=== PATIENT | male | born 1990 | race American Indian/Alaskan Native ===

== ENCOUNTER 2016-06-16 15:36 | Emergency (ER) | payer SELFPAY ==
[2016-06-16 18:06] LABS: Bilirubin,Urine NEG (Negative); Blood,Urine NEG (Negative); Ketones,Urine NEG (Negative); Leukocyte Esterase,Urine TR (Negative); Mucus,Urine FEW /HPF; Nitrite,Urine NEG (Negative); Protein,Urine <15 mg/dL mg/dL (Negative); Urobilinogen,Urine < 2.0 mg/dL (<2.0)
--- NOTE | 2016-06-16 21:45 | Ultrasound Report ---
FINAL REPORT EXAM: US TESTICULAR DOPPLER COMP HISTORY: scrot pain TECHNIQUE: Ultrasound scrotum with pulsed and color Doppler evaluation PRIORS: None. FINDINGS: Right testicle is 3.4 x 3.4 x 3.2 centimeters. There is normal echogenicity. Normal flow seen on pulsed and color Doppler evaluation Left testicle is 3.7 x 2.6 x 3.2 centimeters. There is normal vascular flow seen on pulsed and color Doppler evaluation. Normal echogenicity There are small bilateral hydroceles present The epididymal heads appear prominent in size. No focal abnormal mass identified. IMPRESSION: Bilateral small hydroceles Prominent size of the epididymis and epididymal heads bilaterally consideration given to epididymitis
[2016-06-16] MEDS ORDERED: XYLOCAINE 1% MPF 5 mL INFILTRATI ONE (22:33)
[2016-06-16] MEDS ORDERED: ROCEPHIN IM ONE (22:33)
[2016-06-16] MEDS ORDERED: MOTRIN PO ONE (22:34)
--- NOTE | 2016-06-16 22:37 | Emergency Department Report ---
ED Male HPI - General Chief complaint: Urogenital-Male Stated complaint: INGUINAL HERNIA / SEVERE PAIN Time Seen by Provider: 06/16/16 22:07 Source: patient Mode of arrival: Ambulatory Limitations: No Limitations - History of Present Illness MD Complaint: testicle pain, testicle swelling, dysuria Onset/Timin -: Gradual, week(s) Location: left testicle Severity: moderate Severity scale (0 -10): 6 Quality: aching Consistency: constant Improves with: none Worsens with: urination, movement denies other symptoms - Related Data Previous Rx's Medication Instructions Recorded Last Taken Type Ibuprofen [Motrin] 600 mg PO Q8H PRN #60 tablet 04/21/15 Unknown Rx traMADol [Ultram] 50 mg PO Q6HR PRN #14 tablet 04/21/15 Unknown Rx Diazepam Tab [Valium] 5 mg PO TID PRN #12 tablet 08/22/15 Unknown Rx predniSONE [Deltasone] 20 mg PO BID #10 tablet 08/22/15 Unknown Rx Doxycycline [Vibramycin CAP] 100 mg PO Q12HR #20 capsule 06/16/16 Unknown Rx Ibuprofen [Motrin] 600 mg PO Q8H PRN #30 tablet 06/16/16 Unknown Rx Allergies Allergy/AdvReac Type Severity Reaction Status Date / Time No Known Allergies Allergy Verified 04/21/15 04:10 ED Review of Systems ROS: Stated complaint: INGUINAL HERNIA / SEVERE PAIN Other details as noted in HPI Constitutional: denies: chills, fever Eyes: denies: eye pain, eye discharge, vision change ENT: denies: ear pain, throat pain Respiratory: denies: cough, shortness of breath, wheezing Cardiovascular: denies: chest pain, palpitations Endocrine: no symptoms reported Gastrointestinal: denies: abdominal pain, nausea, diarrhea Genitourinary: dysuria, testicular pain (patient complaining of mild testicular pain and swelling 1 week Niaspan now discharged). denies: urgency Musculoskeletal: denies: back pain, joint swelling, arthralgia Skin: denies: rash, lesions Neurological: denies: headache, weakness, paresthesias Psychiatric: denies: anxiety, depression Hematological/Lymphatic: denies: easy bleeding, easy bruising ED Past Medical Hx - Social History Smoking Status: Never Smoker Substance Use Type: None - Medications Home Medications: Home Medications Medication Instructions Recorded Confirmed Last Taken Type Ibuprofen [Motrin] 600 mg PO Q8H PRN #60 tablet 04/21/15 Unknown Rx traMADol [Ultram] 50 mg PO Q6HR PRN #14 tablet 04/21/15 Unknown Rx Diazepam Tab [Valium] 5 mg PO TID PRN #12 tablet 08/22/15 Unknown Rx predniSONE [Deltasone] 20 mg PO BID #10 tablet 08/22/15 Unknown Rx Doxycycline [Vibramycin CAP] 100 mg PO Q12HR #20 capsule 06/16/16 Unknown Rx Ibuprofen [Motrin] 600 mg PO Q8H PRN #30 tablet 06/16/16 Unknown Rx ED Physical Exam - General Limitations: No Limitations General appearance: alert, in no apparent distress - Head Head exam: Present: atraumatic, normocephalic - Eye Eye exam: Present: normal appearance - ENT ENT exam: Present: mucous membranes moist - Neck Neck exam: Present: normal inspection - Respiratory Respiratory exam: Present: normal lung sounds bilaterally. Absent: respiratory distress - Cardiovascular Cardiovascular Exam: Present: regular rate, normal rhythm. Absent: systolic murmur, diastolic murmur, rubs, gallop - GI/Abdominal GI/Abdominal exam: Present: soft, normal bowel sounds - Rectal Rectal exam: Present: deferred - Expanded Exam Expanded Male exam: Present: other exam: Testicular Tenderness: Left, Right (mild testicular tenderness upper aspect of bilateral testicles. No visible erythema no crepitus on exam on palpation), Testicular Swelling: Left, Right (only mild testicular swelling as per patient. No perineal abscess or crepitus on clinical exam on palpation or visualization of the perineum/base of scrotum), Epididymal Tenderness: Left, Right, Cremasteric Reflex Present: Left, Right image: 1 - Mild upper testicular tenderness bilaterally. No hernias palpable in inguinal rings bilaterally during clinical exam on palpation - Extremities Exam Extremities exam: Present: normal inspection - Back Exam Back exam: Present: normal inspection - Neurological Exam Neurological exam: Present: alert, oriented X3, CN II-XII intact, normal gait - Psychiatric Psychiatric exam: Present: normal affect, normal mood - Skin Skin exam: Present: warm, dry, intact, normal color. Absent: rash ED Course Vital Signs 06/16/16 15:55 Temperature 98.1 F Pulse Rate 57 L Respiratory 20 Rate Blood Pressure 140/89 O2 Sat by Pulse 99 Oximetry ED Medical Decision Making - Medical Decision Making A/P: Acute Epididymitis 1-no clinical signs of geri's gangrene, no crepitus on testicular exam, no fever, no viable fluctuance or abscess, no testicular erythema 2-will treat empirically with ceftriaxone IM and doxycycline 3-urine culture sent, GC culture sent 4-will give patient follow up with primary care and urology 5- I advised patient to return to the ED for any worsening testicular swelling testicular pain fever chills nausea vomiting or abdominal pain Critical care attestation.: If time is entered above; I have spent that time in minutes in the direct care of this critically ill patient, excluding procedure time. ED Disposition Clinical Impression: Acute epididymitis Disposition: DISCHARGED TO HOME OR SELFCARE Is pt being admited?: No Does the pt Need Aspirin: No Condition: Stable Instructions: Epididymitis (ED) Prescriptions: Ibuprofen [Motrin] 600 mg PO Q8H PRN #30 tablet PRN Reason: Pain Doxycycline [Vibramycin CAP] 100 mg PO Q12HR #20 capsule Referrals: PRIMARY CAREMD [Primary Care Provider] - 3-5 Days [facility] [Provider Group] - 3-5 Days AMANDA CLEMENTS MD [Staff Physician] - 3-5 Days [facility] [Outside] - 3-5 Days Forms: STI Treatment and Prevention Time of Disposition: 22:46
[2016-06-16 23:39] VITALS: BP 132/78
== END 2016-06-16 23:40 | disposition home or self-care (01) ==
LOC: ED 15:36
DX: N45.1 Epididymitis (principal)
CPT/HCPCS: 81001; 93975; 96372; 99283; J0696

== ENCOUNTER 2016-10-31 22:49 | Emergency (ER) | payer SELFPAY ==
[2016-10-31] MEDS ORDERED: TYLENOL PO ONE (23:16)
[2016-10-31] MEDS ORDERED: TYLENOL ONE (23:17)
[2016-11-01 00:03] LABS: Anion Gap 17 mmol/L; Blood Urea Nitrogen 11 mg/dL (9-20); Calcium 8.9 mg/dL (8.4-10.2); Carbon Dioxide 27 mmol/L (22-30); Chloride 98.8 mmol/L (98-107); Glucose 99 mg/dL (75-100); Potassium 4.1 mmol/L (3.6-5.0); Sodium 139 mmol/L (137-145)
[2016-11-01 00:13] LABS: Basophils % (Auto) 0.4 % (0.0-1.8); Eosinophils % (Auto) 0.2 % (0.0-4.3); Hemoglobin 14.1 gm/dl (11.8-15.2); Mean Corpuscular HGB Conc 34 % (32-34); Mean Corpuscular Hemoglobin 30 pg (28-32); Mean Corpuscular Volume 90 fl (84-94); Platelet Count 140 K/mm3 (140-440); Red Blood Count 4.68 M/mm3 (3.65-5.03); Red Cell Distribution Width 13.9 % (13.2-15.2); White Blood Count 9.5 K/mm3 (4.5-11.0)
[2016-11-01] MEDS ORDERED: NACL 0.9% 1000 ML 1,000 ML IV ONE (00:28)
[2016-11-01] MEDS ORDERED: MORPHINE IV ONE (00:29)
--- NOTE | 2016-11-01 00:29 | Emergency Department Report ---
ED ENT HPI - General Chief complaint: Fever Stated complaint: STEEL/HEAD INJURY Source: patient Mode of arrival: Ambulatory Limitations: No Limitations - History of Present Illness Initial comments: 26M PMH none p/w complaint of x 1 week of right sided earache, mild facial swelling. + headache, subjective chills and fevers. Denies nausea or vomiting. MD complaint: ear pain Onset/Timin -: days(s) - Related Data Previous Rx's Medication Instructions Recorded Last Taken Type Amoxicillin/K Clav Tab [Augmentin 1 tab PO Q12HR #20 tab 11/01/16 Unknown Rx 875 mg] Ciprofloxacin HCl [Ciprofloxacin 500 mg PO Q12H #20 tab 11/01/16 Unknown Rx TAB] HYDROcodone/APAP 5-325 [[place] 1 each PO Q6HR PRN #12 tablet 11/01/16 Unknown Rx 5/325] Ibuprofen [Motrin] 600 mg PO Q8H PRN #25 tablet 11/01/16 Unknown Rx Tobramycin 0.3% [Tobrex] 1 drop OTIC Q8HR #1 bottle 11/01/16 Unknown Rx Allergies Allergy/AdvReac Type Severity Reaction Status Date / Time No Known Allergies Allergy Verified 04/21/15 04:10 ED Dental HPI - General Chief complaint: Fever Stated complaint: STEEL/HEAD INJURY Source: patient Mode of arrival: Ambulatory Limitations: No Limitations - Related Data Previous Rx's Medication Instructions Recorded Last Taken Type Amoxicillin/K Clav Tab [Augmentin 1 tab PO Q12HR #20 tab 11/01/16 Unknown Rx 875 mg] Ciprofloxacin HCl [Ciprofloxacin 500 mg PO Q12H #20 tab 11/01/16 Unknown Rx TAB] HYDROcodone/APAP 5-325 [[place] 1 each PO Q6HR PRN #12 tablet 11/01/16 Unknown Rx 5/325] Ibuprofen [Motrin] 600 mg PO Q8H PRN #25 tablet 11/01/16 Unknown Rx Tobramycin 0.3% [Tobrex] 1 drop OTIC Q8HR #1 bottle 11/01/16 Unknown Rx Allergies Allergy/AdvReac Type Severity Reaction Status Date / Time No Known Allergies Allergy Verified 04/21/15 04:10 ED Review of Systems ROS: Stated complaint: STEEL/HEAD INJURY Other details as noted in HPI ED Past Medical Hx - Past Medical History Previous Medical History?: No - Surgical History Past Surgical History?: No - Social History Smoking Status: Current Every Day Smoker Substance Use Type: None - Medications Home Medications: Home Medications Medication Instructions Recorded Confirmed Last Taken Type Amoxicillin/K Clav Tab [Augmentin 1 tab PO Q12HR #20 tab 11/01/16 Unknown Rx 875 mg] Ciprofloxacin HCl [Ciprofloxacin 500 mg PO Q12H #20 tab 11/01/16 Unknown Rx TAB] HYDROcodone/APAP 5-325 [[place] 1 each PO Q6HR PRN #12 tablet 11/01/16 Unknown Rx 5/325] Ibuprofen [Motrin] 600 mg PO Q8H PRN #25 tablet 11/01/16 Unknown Rx Tobramycin 0.3% [Tobrex] 1 drop OTIC Q8HR #1 bottle 11/01/16 Unknown Rx ED Physical Exam - General Limitations: No Limitations ED Course Vital Signs 10/31/16 11/01/16 11/01/16 23:09 00:30 00:51 Temperature 102.4 F H 100.3 F H Pulse Rate 81 76 Respiratory 22 18 18 Rate Blood Pressure 151/95 Blood Pressure 141/79 [Left] Blood Pressure [Right] O2 Sat by Pulse 100 98 Oximetry 11/01/16 04:15 Temperature 98 F Pulse Rate 56 L Respiratory 18 Rate Blood Pressure Blood Pressure [Left] Blood Pressure 112/62 [Right] O2 Sat by Pulse 100 Oximetry ED Medical Decision Making - Lab Data Result diagrams: 10/31/16 23:25 10/31/16 23:25 - Medical Decision Making A/P: Mastoiditis right side versus otitis externa and otitis media 1-patient empirically covered with vancomycin and Zosyn for initial treatment 2-CT scan suggestive of subtle mastoiditis 3-consulted ENT manager information at [place], discussed case with , as per Dr. Rubi treatment for mastoiditis is medical w/ IV ABX, no indication for transfer at this time as pt is hemodynamically stable 4-10 day course of Augmentin, will also add cipro ear drops for pseudomonal coverage as pt has inflammation of external auditory canal 5- Case d/w Dr. Gregory 6- ENT f/u. I advised pt to return to the ED for any fever,s chills, pus drainage from ear or worsened pain/ inflammation. Naproxen and norco PRN Critical care attestation.: If time is entered above; I have spent that time in minutes in the direct care of this critically ill patient, excluding procedure time. ED Disposition Clinical Impression: Earache on right Otitis media Qualifiers: Otitis media type: suppurative Chronicity: acute Laterality: right Recurrence: not specified as recurrent Spontaneous tympanic membrane rupture: without spontaneous rupture Qualified Code(s): H66.001 - Acute suppurative otitis media without spontaneous rupture of ear drum, right ear Disposition: TO HOME OR SELFCARE Is pt being admited?: No Does the pt Need Aspirin: No Condition: Stable Instructions: Otitis Externa (ED), Otitis Media (ED) Prescriptions: Amoxicillin/K Clav Tab [Augmentin 875 mg] 1 tab PO Q12HR #20 tab Ciprofloxacin HCl [Ciprofloxacin TAB] 500 mg PO Q12H #20 tab HYDROcodone/APAP 5-325 [[place] 5/325] 1 each PO Q6HR PRN #12 tablet PRN Reason: Pain Ibuprofen [Motrin] 600 mg PO Q8H PRN #25 tablet PRN Reason: Pain Tobramycin 0.3% [Tobrex] 1 drop OTIC Q8HR #1 bottle Referrals: [facility] [Provider Group] - 3-5 Days [facility] [Provider Group] - 3-5 Days MENDOZA SIMON MD [Staff Physician] - 3-5 Days OHLLY GE MD [Staff Physician] - 3-5 Days Time of Disposition: 03:43
[2016-11-01] MEDS ORDERED: NACL ONE (00:48)
--- NOTE | 2016-11-01 01:25 | Cat Scan Report ---
FINAL REPORT PROCEDURE: CT FACIAL BONES W CON TECHNIQUE: Computerized tomography of the facial bones and soft tissues with axial and coronal sections was performed from the cranial aspect of the frontal sinuses to the caudal portion of the mandible following the IV injection of iodinated nonionic contrast. HISTORY: Question right mastoiditis. COMPARISON: No prior studies are available for comparison. FINDINGS: Bones: No significant abnormality. Paranasal sinuses: Mild rightward septal deviation. Mild bilateral maxillary sinusitis. Small amount of left fronto ethmoid sinusitis. Minimal bilateral frontal sinusitis. Subtle scattered opacification of the bilateral mastoids Soft tissues: Mildly asymmetric right periauricular soft tissue prominence. Abnormal enhancement: None. Other: Cavity about the 16 tooth/molar. IMPRESSION: Mild sinusitis. Subtle opacification of the mastoids, consider subtle mastoiditis. Slightly asymmetric right periauricular soft tissue prominence, could be positional but consider subtle infectious/inflammatory process such as otitis externa. Cavity about the left 16th molar. Consider dental consultation.
[2016-11-01] MEDS ORDERED: VANCOMYCIN VIAL IV ONE (01:35)
[2016-11-01] MEDS ORDERED: VANCOMYCIN 1,750 MG in NACL 0.9% 500 ML 500 ML IV ONE (01:45)
[2016-11-01] MEDS ORDERED: ZOSYN/NS 4.5GM/100ML 4.5 GM/100 ML VIAL IV ONE (01:51)
[2016-11-01] MEDS ORDERED: VANCOMYCIN PHARMACY TO DOSE IV SCH (02:00)
[2016-11-01 04:16] VITALS: BP 112/62
== END 2016-11-01 04:25 | disposition home or self-care (01) ==
LOC: ED 22:49
DX: H66.001 Acute suppurative otitis media without spontaneous rupture of ear drum, right ear (principal); H92.01 Otalgia, right ear; F17.200 Nicotine dependence, unspecified, uncomplicated
CPT/HCPCS: 36415; 70487; 80048; 82140; 85025; 85652; 86140; 87040; 96361; 96365; 96366; 96368; 96375; 99284; J2270; J2543; J3370; J7030; J7040; Q9967

== ENCOUNTER 2018-11-16 09:04 | Emergency (ER) | payer OTHER ==
[2018-11-16 09:19] VITALS: BP 142/86
--- NOTE | 2018-11-16 11:51 | Emergency Department Report ---
- General Chief Complaint: Wound/Laceration Stated Complaint: OTHER Time Seen by Provider: 11/16/18 10:45 Source: patient Mode of arrival: Ambulatory Limitations: No Limitations - History of Present Illness Initial Comments: Patient is a 28-year-old -[place] male who is noncircumcised who is here for because of a lesion that he has on his penis. The patient states that when he pulls his foreskin back his saw a open wound at the distal shaft on the right. Patient states this is painful. Patient denies any penile discharge dysuria. He states that there is no fevers chills nausea vomiting he's had no trauma. - Related Data Previous Rx's Medication Instructions Recorded Last Taken Type Amoxicillin/K Clav Tab [Augmentin 1 tab PO Q12HR #20 tab 11/01/16 Unknown Rx 875 mg] Ciprofloxacin HCl [Ciprofloxacin 500 mg PO Q12H #20 tab 11/01/16 Unknown Rx TAB] HYDROcodone/APAP 5-325 [[place] 1 each PO Q6HR PRN #12 tablet 11/01/16 Unknown Rx 5/325] Ibuprofen [Motrin] 600 mg PO Q8H PRN #25 tablet 11/01/16 Unknown Rx Tobramycin 0.3% [Tobrex] 1 drop OTIC Q8HR #1 bottle 11/01/16 Unknown Rx Clotrimazole [Clotrimazole AF] 1 applic TP BID #30 cream..g. 11/16/18 Unknown Rx DOXYCYCLINE Hyclate [Vibramycin 100 mg PO Q12HR #14 capsule 11/16/18 Unknown Rx CAP] traMADol [Ultram] 50 mg PO Q6HR PRN #12 tablet 11/16/18 Unknown Rx Allergies Allergy/AdvReac Type Severity Reaction Status Date / Time No Known Allergies Allergy Verified 04/21/15 04:10 ED Review of Systems ROS: Stated complaint: OTHER Other details as noted in HPI Comment: All other systems reviewed and negative ED Past Medical Hx - Past Medical History Previous Medical History?: No - Surgical History Past Surgical History?: No - Social History Smoking Status: Current Every Day Smoker Substance Use Type: Alcohol - Medications Home Medications: Home Medications Medication Instructions Recorded Confirmed Last Taken Type Amoxicillin/K Clav Tab [Augmentin 1 tab PO Q12HR #20 tab 11/01/16 Unknown Rx 875 mg] Ciprofloxacin HCl [Ciprofloxacin 500 mg PO Q12H #20 tab 11/01/16 Unknown Rx TAB] HYDROcodone/APAP 5-325 [[place] 1 each PO Q6HR PRN #12 tablet 11/01/16 Unknown Rx 5/325] Ibuprofen [Motrin] 600 mg PO Q8H PRN #25 tablet 11/01/16 Unknown Rx Tobramycin 0.3% [Tobrex] 1 drop OTIC Q8HR #1 bottle 11/01/16 Unknown Rx Clotrimazole [Clotrimazole AF] 1 applic TP BID #30 cream..g. 11/16/18 Unknown Rx DOXYCYCLINE Hyclate [Vibramycin 100 mg PO Q12HR #14 capsule 11/16/18 Unknown Rx CAP] traMADol [Ultram] 50 mg PO Q6HR PRN #12 tablet 11/16/18 Unknown Rx ED Physical Exam - General Limitations: No Limitations General appearance: alert, in no apparent distress - Head Head exam: Present: atraumatic, normocephalic - Eye Eye exam: Present: normal appearance - ENT ENT exam: Present: mucous membranes moist - Respiratory Respiratory exam: Absent: respiratory distress - GI/Abdominal GI/Abdominal exam: Present: soft, normal bowel sounds. Absent: tenderness - exam: Present: other (the patient has excoriated skin circumferentially [place] the inner portion of his foreskin as well as the distal shaft of the penis consistent with a fungal infection. There is a 1-1/2 cm diameter open lesion with bright erythema and no purulent drainage on the right distal shaft at the junction of the glans.). Absent: testicular tenderness, urethral discharge, circumcision ED Course Vital Signs 11/16/18 09:17 Temperature 98.7 F Pulse Rate 62 Respiratory 18 Rate Blood Pressure 142/86 O2 Sat by Pulse 100 Oximetry ED Medical Decision Making - Medical Decision Making Differential diagnosis for the patient's lesion includes herpes simplex chancroid as well as syphilis. Syphilis is less likely since this lesion is painful however the patient does have a fungal infection with some excoriated skin and a secondary bacterial infection is possible as well as a secondary fungal infection. RPR sent to rule out syphilis. This positive patient will need to return for Bicillin. Patient started on antifungal cream as well as doxycycline. Herpes swab has been sent as well and the patient will be contacted if this is positive. Critical care attestation.: If time is entered above; I have spent that time in minutes in the direct care of this critically ill patient, excluding procedure time. ED Disposition Clinical Impression: Penile lesion, Fungal skin infection Disposition: - TO HOME OR SELFCARE Is pt being admited?: No Does the pt Need Aspirin: No Condition: Stable Additional Instructions: An RPR to rule out syphilis and a herpes swab have been sent. If either these tests are positive we will contact you. If she do not hear from us in the next week please follow-up with medical records she requests your results. If either of these tests are positive he will need additional treatment. Referrals: SRINIVAS MATHEWS MD [Primary Care Provider] - 3-5 Days Time of Disposition: 11:52
[2018-11-16] MEDS ORDERED: XYLOCAINE 1% MPF 5 mL INFILTRATI ONE (11:52)
[2018-11-16] MEDS ORDERED: ROCEPHIN IM ONE (11:52)
== END 2018-11-16 12:49 | disposition home or self-care (01) ==
LOC: ED 09:04
DX: L08.89 Other specified local infections of the skin and subcutaneous tissue (principal); F17.200 Nicotine dependence, unspecified, uncomplicated; Z79.899 Other long term (current) drug therapy
CPT/HCPCS: 36415; 86592; 87255; 96372; 99283; J0696

== ENCOUNTER 2019-02-03 13:19 | Emergency (ER) | payer SELFPAY ==
--- NOTE | 2019-02-03 13:26 | Emergency Department Report ---
Blank Doc - Documentation Documentation: 28-year-old male that presents with rectal pain with history of hemorrhoids. This initial assessment/diagnostic orders/clinical plan/treatment(s) is/are subject to change based on patient's health status, clinical progression and re- assessment by fellow clinical providers in the ED. Further treatment and workup at subsequent clinical providers discretion. Patient/guardians urged not to elope from the ED as their condition may be serious if not clinically assessed and managed. Initial orders include: 1- Patient sent to [facility] for further evaluation and treatment
--- NOTE | 2019-02-03 14:49 | Emergency Department Report ---
ED General Adult HPI - General Chief complaint: Rectal Pain Stated complaint: HEMORRHOID PAIN/BLEEDING Time Seen by Provider: 02/03/19 13:25 Source: patient Mode of arrival: Ambulatory Limitations: No Limitations - History of Present Illness Initial comments: Patient is a 28-year-old male who presents emergency room with complaints of hemorrhoid pain for the last couple of days. States he has also had rectal bleeding from the hemorrhoid. Patient states that he had a bowel movement this morning. He states he has been straining to have a bowel movement. pt states he has history of hemorrhoids in the past. He states he has been taking Colace and using Preparation H cream. He has never seen a GI doctor. He denies any abdominal pain, nausea, vomiting, fever. He denies any past medical history or allergies to medications. - Related Data Previous Rx's Medication Instructions Recorded Last Taken Type Amoxicillin/K Clav Tab [Augmentin 1 tab PO Q12HR #20 tab 11/01/16 Unknown Rx 875 mg] Ciprofloxacin HCl [Ciprofloxacin 500 mg PO Q12H #20 tab 11/01/16 Unknown Rx TAB] HYDROcodone/APAP 5-325 [[place] 1 each PO Q6HR PRN #12 tablet 11/01/16 Unknown Rx 5/325] Ibuprofen [Motrin] 600 mg PO Q8H PRN #25 tablet 11/01/16 Unknown Rx Tobramycin 0.3% [Tobrex] 1 drop OTIC Q8HR #1 bottle 11/01/16 Unknown Rx Clotrimazole [Clotrimazole AF] 1 applic TP BID #30 cream..g. 11/16/18 Unknown Rx DOXYCYCLINE Hyclate [Vibramycin 100 mg PO Q12HR #14 capsule 11/16/18 Unknown Rx CAP] traMADol [Ultram] 50 mg PO Q6HR PRN #12 tablet 11/16/18 Unknown Rx Dibucaine [Hemorrhoidal-Analgesic] 1 applic TP TID PRN #1 oint...g. 02/03/19 Unknown Rx Hydrocortisone [Anucort-HC SUPPOS] 25 mg RC BID #10 supp.rect 02/03/19 Unknown Rx Hydrocortisone [Anusol-Hc 2.5% TOP 1 applicatio RC BID #1 cream..g. 02/03/19 Unknown Rx CREAM] Magnesium Citrate [Citrate of 300 ml PO ONCE PRN #1 solution 02/03/19 Unknown Rx Magnesia] Allergies Allergy/AdvReac Type Severity Reaction Status Date / Time No Known Allergies Allergy Verified 04/21/15 04:10 ED Review of Systems ROS: Stated complaint: HEMORRHOID PAIN/BLEEDING Other details as noted in HPI Comment: All other systems reviewed and negative ED Past Medical Hx - Past Medical History Previous Medical History?: No - Surgical History Past Surgical History?: No - Social History Smoking Status: Current Every Day Smoker Substance Use Type: None - Medications Home Medications: Home Medications Medication Instructions Recorded Confirmed Last Taken Type Amoxicillin/K Clav Tab [Augmentin 1 tab PO Q12HR #20 tab 11/01/16 Unknown Rx 875 mg] Ciprofloxacin HCl [Ciprofloxacin 500 mg PO Q12H #20 tab 11/01/16 Unknown Rx TAB] HYDROcodone/APAP 5-325 [[place] 1 each PO Q6HR PRN #12 tablet 11/01/16 Unknown Rx 5/325] Ibuprofen [Motrin] 600 mg PO Q8H PRN #25 tablet 11/01/16 Unknown Rx Tobramycin 0.3% [Tobrex] 1 drop OTIC Q8HR #1 bottle 11/01/16 Unknown Rx Clotrimazole [Clotrimazole AF] 1 applic TP BID #30 cream..g. 11/16/18 Unknown Rx DOXYCYCLINE Hyclate [Vibramycin 100 mg PO Q12HR #14 capsule 11/16/18 Unknown Rx CAP] traMADol [Ultram] 50 mg PO Q6HR PRN #12 tablet 11/16/18 Unknown Rx Dibucaine [Hemorrhoidal-Analgesic] 1 applic TP TID PRN #1 oint...g. 02/03/19 Unknown Rx Hydrocortisone [Anucort-HC SUPPOS] 25 mg RC BID #10 supp.rect 02/03/19 Unknown Rx Hydrocortisone [Anusol-Hc 2.5% TOP 1 applicatio RC BID #1 cream..g. 02/03/19 Unknown Rx CREAM] Magnesium Citrate [Citrate of 300 ml PO ONCE PRN #1 solution 02/03/19 Unknown Rx Magnesia] ED Physical Exam - General Limitations: No Limitations General appearance: alert, in no apparent distress - Head Head exam: Present: atraumatic, normocephalic - Eye Eye exam: Present: normal appearance - ENT ENT exam: Present: mucous membranes moist - Respiratory Respiratory exam: Present: normal lung sounds bilaterally. Absent: respiratory distress, wheezes, rales, rhonchi, stridor, chest wall tenderness, accessory muscle use, decreased breath sounds, prolonged expiratory - Cardiovascular Cardiovascular Exam: Present: regular rate, normal rhythm, normal heart sounds. Absent: systolic murmur, diastolic murmur, rubs, gallop - GI/Abdominal GI/Abdominal exam: Present: soft, normal bowel sounds. 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 States he has also had rectal bleeding from the hemorrhoid. Patient states that he had a bowel movement this morning. He states he has been straining to have a bowel movement. pt states he has history of hemorrhoids in the past. He states he has been taking Colace and using Preparation H cream. He has never seen a GI doctor. He denies any abdominal pain, nausea, vomiting, fever. He denies any past medical history or allergies to medications. VSS, no hypotension or tachycardia. 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 pt given anusol ointment, anusol suppository, and magnesium citrate, and dibucaine. discussed with pt due to having these chronically and due to having so many it is very important pt see a GI specialist. advised pt to please use medication as prescribed. continue taking your colace and using preparation H cream. Please do sitz baths 3 times a day. increase your water and fiber intake. Please follow-up with the GI doctor in the next 2-3 days. It is very important that you follow up with a GI doctor due to you getting these frequently. Return to the emergency room for any new or worsening symptoms. Critical care attestation.: If time is entered above; I have spent that time in minutes in the direct care of this critically ill patient, excluding procedure time. ED Disposition Clinical Impression: External hemorrhoids Disposition: DC- TO HOME OR SELFCARE Is pt being admited?: No Does the pt Need Aspirin: No Condition: Stable Instructions: Hemorrhoids (ED), High Fiber Diet (ED), Sitz Bath (GEN) Additional Instructions: Please use medication as prescribed. continue taking your colace and using preparation H cream. Please do sitz baths 3 times a day. increase your water and fiber intake. Please follow-up with the GI doctor in the next 2-3 days. It is very important that you follow up with a GI doctor due to you getting these frequently. Return to the emergency room for any new or worsening symptoms. Prescriptions: Hydrocortisone [Anucort-HC SUPPOS] 25 mg RC BID #10 supp.rect Hydrocortisone [Anusol-Hc 2.5% TOP CREAM] 1 applicatio RC BID #1 cream..g. Magnesium Citrate [Citrate of Magnesia] 300 ml PO ONCE PRN #1 solution PRN Reason: Constipation Dibucaine [Hemorrhoidal-Analgesic] 1 applic TP TID PRN #1 oint...g. PRN Reason: rectal pain Referrals: [facility] [Provider Group] - 2-3 Days Time of Disposition: 15:03 Print Language: VINCENTIAN
[2019-02-03 15:31] VITALS: BP 141/90
== END 2019-02-03 15:30 | disposition home or self-care (01) ==
LOC: ED 13:19
DX: K64.4 Residual hemorrhoidal skin tags (principal); F17.200 Nicotine dependence, unspecified, uncomplicated; Z79.899 Other long term (current) drug therapy; Z87.19 Personal history of other diseases of the digestive system

== ENCOUNTER 2020-06-19 12:47 | Emergency (ER) | payer SELFPAY ==
--- NOTE | 2020-06-19 12:59 | Event Note ---
ED Screening Note ED Screening Note: pain radiating up and down back htn in triage no cp no sob chills does not work cig no etoh/drugs pmh NONE psh NONE mom and dad a/w donates plasma and he does not normally have htn This initial assessment/diagnostic orders/clinical plan/treatment(s) is/are subject to change based on patients health status, clinical progression and re- assessment by fellow clinical providers in the ED. Further treatment and workup at subsequent clinical providers discretion. Patient/guardian urged not to elope from the ED as their condition may be serious if not clinically assessed and managed. Initial orders include: ekg given htn xray ro dissection as source of pain
[2020-06-19 13:02] VITALS: BP 142/110
--- NOTE | 2020-06-19 13:52 | XRay Report ---
CHEST PA AND LATERAL VIEWS INDICATION: Chest pain. COMPARISON: None. FINDINGS: Support devices: None. Heart: Within normal limits. Lungs/Pleura: No acute pulmonary or pleural findings. IMPRESSION: 1. No acute findings. Signer Name: Cain Reyes MD Signed: 06/19/2020 1:47 PM Workstation Name: [id number]
[2020-06-19] MEDS ORDERED: IBUPROFEN 800 MG TAB PO ONE (14:10)
--- NOTE | 2020-06-19 14:10 | Emergency Department Report ---
ED General Adult HPI - General Chief complaint: Back Pain/Injury Stated complaint: BACK/NECK/SIDE PAIN PUI?: No Time Seen by Provider: 06/19/20 12:57 Source: patient Mode of arrival: Ambulatory Limitations: No Limitations - History of Present Illness Initial comments: Patient is a 30-year-old male that comes to the emergency room with back pain it is high lumbar low thoracic in nature. Is worse with movement. It is improved with immobilization. Patient is ambulatory. Patient denies any chest pain or shortness of breath. Denies fever or chills. Blood pressure noted to be elevated on triage. Patient has no history of hypertension. Patient denies any trauma or fall involving his back. 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 -: Gradual, days(s) Radiation: non-radiation Quality: aching Consistency: intermittent Improves with: immobilization Worsens with: movement Associated Symptoms: denies other symptoms Treatments Prior to Arrival: none - Related Data Previous Rx's Medication Instructions Recorded Last Taken Type Cyclobenzaprine [Flexeril] 10 mg PO TID PRN #10 tablet 06/19/20 Unknown Rx Ibuprofen [Motrin] 800 mg PO Q8HR PRN #30 tablet 06/19/20 Unknown Rx predniSONE [Deltasone] 20 mg PO DAILY #5 tablet 06/19/20 Unknown Rx Allergies Allergy/AdvReac Type Severity Reaction Status Date / Time No Known Allergies Allergy Verified 04/21/15 04:10 ED Review of Systems ROS: Stated complaint: BACK/NECK/SIDE PAIN Other details as noted in HPI Comment: All other systems reviewed and negative ED Past Medical Hx - Past Medical History Previous Medical History?: No - Surgical History Past Surgical History?: No - Family History Family history: no significant - Social History Smoking Status: Current Every Day Smoker Substance Use Type: None - Medications Home Medications: Home Medications Medication Instructions Recorded Confirmed Last Taken Type Cyclobenzaprine [Flexeril] 10 mg PO TID PRN #10 tablet 06/19/20 Unknown Rx Ibuprofen [Motrin] 800 mg PO Q8HR PRN #30 tablet 06/19/20 Unknown Rx predniSONE [Deltasone] 20 mg PO DAILY #5 tablet 06/19/20 Unknown Rx ED Physical Exam - General Limitations: No Limitations General appearance: alert, in no apparent distress - Head Head exam: Present: atraumatic, normocephalic - Eye Eye exam: Present: normal appearance - ENT ENT exam: Present: mucous membranes moist - Neck Neck exam: Present: normal inspection - Respiratory Respiratory exam: Present: normal lung sounds bilaterally. Absent: respiratory distress - Cardiovascular Cardiovascular Exam: Present: regular rate, normal rhythm. Absent: systolic murmur, diastolic murmur, rubs, gallop - GI/Abdominal GI/Abdominal exam: Present: soft, normal bowel sounds - Rectal Rectal exam: Present: deferred - Extremities Exam Extremities exam: Present: normal inspection - Back Exam Back exam: Present: normal inspection - Neurological Exam Neurological exam: Present: alert, oriented X3 - Psychiatric Psychiatric exam: Present: normal affect, normal mood - Skin Skin exam: Present: warm, dry, intact, normal color. Absent: rash ED Course Vital Signs 06/19/20 06/19/20 12:55 13:10 Temperature 97.8 F Pulse Rate 91 H Respiratory 20 Rate Blood Pressure 142/110 O2 Sat by Pulse 99 Oximetry ED Medical Decision Making - EKG Data EKG shows normal: sinus rhythm Rate: normal - EKG Data When compared to previous EKG there are: no significant change Interpretation: no acute changes - Radiology Data Radiology results: report reviewed, image reviewed - Medical Decision Making Vital Signs 06/19/20 06/19/20 12:55 13:10 Temperature 97.8 F Pulse Rate 91 H Respiratory 20 Rate Blood Pressure 142/110 O2 Sat by Pulse 99 Oximetry Twelve-lead EKG noted with no acute process per Chest x-ray noted with no acute process. Patient states he does not have a history of hypertension. 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 He thinks it is elevated because he is in pain. Patient medicated in the ER for pain. Patient's pain is reproducible with movement. I have counseled patient about his blood pressure and the need to monitor it. He verbalizes understanding. He states that he will follow-up with the primary care as I have instructed. Patient is being discharged home with discharge instructions including medications, follow-up, blood pressure monitoring, diet and activity. He verbalizes understanding of discharge plan of care. Blood pressure on discharge is taken by the provider 130/80. Heart rate is 80 - Differential Diagnosis RO AO DISSECTION Critical care attestation.: If time is entered above; I have spent that time in minutes in the direct care of this critically ill patient, excluding procedure time. ED Disposition Clinical Impression: Back pain, Elevated blood pressure reading, Lumbar strain Disposition: - TO HOME OR SELFCARE Is pt being admited?: No Does the pt Need Aspirin: No Condition: Stable Instructions: Acute Back Pain, Adult, Hypertension, Adult, [id number] Additional Instructions: Monitor your blood pressure. Daily you should measure your blood pressure in the same arm with the same machine. Record these blood pressures and if they are elevated you need to see primary care. You may need medication to treat your blood pressure. I have given you a referral to a primary care below. You should stay well-hydrated with water. Avoid salt, fried foods and fast food. Medications as ordered today. The primary care doctor can also help you with your back pain. Your EKG and chest x-ray were normal today. Prescriptions: predniSONE [Deltasone] 20 mg PO DAILY #5 tablet Cyclobenzaprine [Flexeril] 10 mg PO TID PRN #10 tablet PRN Reason: Muscle Spasm Ibuprofen [Motrin] 800 mg PO Q8HR PRN #30 tablet PRN Reason: Pain, Moderate (4-6) Referrals: NYDIA SALAZAR MD [Staff Physician] - 3-5 Days Time of Disposition: 14:09
[2020-06-19] MEDS: CYCLOBENZAPRINE 10 MG TAB PO ONE (14:34)
[2020-06-19] MEDS ORDERED: predniSONE 20 MG TAB PO NR (15:00)
== END 2020-06-19 14:43 | disposition home or self-care (01) ==
LOC: ED 12:47
DX: S39.012A Strain of muscle, fascia and tendon of lower back, initial encounter (principal); M54.6 Pain in thoracic spine; R03.0 Elevated blood-pressure reading, without diagnosis of hypertension; F17.200 Nicotine dependence, unspecified, uncomplicated; Z79.899 Other long term (current) drug therapy; X50.0XXA Overexertion from strenuous movement or load, initial encounter; Y93.89 Activity, other specified; Y92.89 Other specified places as the place of occurrence of the external cause; Y99.0 Civilian activity done for income or pay
CPT/HCPCS: 71046; 93005; 99283; J7512

== ENCOUNTER 2020-07-05 17:56 | Emergency (ER) | payer SELFPAY ==
[2020-07-05 18:05] VITALS: BP 155/96
--- NOTE | 2020-07-05 18:21 | Emergency Department Report ---
ED Male HPI - General Chief complaint: Urogenital-Male Stated complaint: POSSIBLE STI/BACK PAIN Source: patient Mode of arrival: Ambulatory Limitations: No Limitations - History of Present Illness Initial comments: Patient is a 30-year-old -Hungarian male with a history of chronic back pain who presents to the ED with complaint of acute onset persistent severe penile pain due to erythematous maculopapular ulcerated penile lesions for the last 1 week after having an unprotected sexual intercourse with a female about 2 weeks ago. Patient states that the pain is worse whenever he voids urine as the urine drains around the lesions. Patient denies dysuria, urinary frequency and urgency, penile discharge, testicular pain, chest pain, shortness of breath, abdominal pain, nausea, vomiting, fever and chills and sore throat. MD Complaint: dysuria, other (penile pain ; erythematous painful penile lesions) -: Sudden, week(s) (1) Location: penis Radiation: none Severity: severe Severity scale (0 -10): 9 Quality: burning, sharp Consistency: constant Improves with: none Worsens with: urination, palpation denies other symptoms, rash (Erythematous ulcerated vesicular lesions on the penile shaft). denies: discharge, swelling, mass, urinary retention, blood in urine, dysuria, fever, nausea/vomiting, incontinence - Related Data Sexually active: Yes Previous Rx's Medication Instructions Recorded Last Taken Type Cyclobenzaprine [Flexeril] 10 mg PO TID PRN #10 tablet 06/19/20 Unknown Rx predniSONE [Deltasone] 20 mg PO DAILY #5 tablet 06/19/20 Unknown Rx Acyclovir 400 mg PO Q8H #30 tablet 07/05/20 Unknown Rx Acyclovir [Acyclovir Ointment] 1 applic TP 5XD #1 tube 07/05/20 Unknown Rx Doxycycline Hyclate 100 mg PO Q12H #20 tablet. 07/05/20 Unknown Rx Ibuprofen [Motrin 800 MG tab] 800 mg PO Q8HR PRN #30 tablet 07/05/20 Unknown Rx Allergies Allergy/AdvReac Type Severity Reaction Status Date / Time No Known Allergies Allergy Verified 07/05/20 18:02 ED Review of Systems ROS: Stated complaint: POSSIBLE STI/BACK PAIN Other details as noted in HPI Constitutional: denies: chills, fever Eyes: denies: eye pain, eye discharge, vision change ENT: denies: ear pain, throat pain Respiratory: denies: cough, shortness of breath, wheezing Cardiovascular: denies: chest pain, palpitations Endocrine: no symptoms reported Gastrointestinal: denies: abdominal pain, nausea, diarrhea Genitourinary: other (painful penile ulcerated lesions). denies: urgency, dysuria Musculoskeletal: denies: back pain, joint swelling, arthralgia Skin: rash (Erythematous ulcerated maculopapular lesions on penile shaft), lesions (Vesicular ulcerated painful lesion on the penile shaft), change in color Neurological: denies: headache, weakness, paresthesias Psychiatric: denies: anxiety, depression Hematological/Lymphatic: denies: easy bleeding, easy bruising ED Past Medical Hx - Past Medical History Previous Medical History?: No - Surgical History Past Surgical History?: No - Social History Smoking Status: Current Every Day Smoker Substance Use Type: None - Medications Home Medications: Home Medications Medication Instructions Recorded Confirmed Last Taken Type Cyclobenzaprine [Flexeril] 10 mg PO TID PRN #10 tablet 06/19/20 Unknown Rx predniSONE [Deltasone] 20 mg PO DAILY #5 tablet 06/19/20 Unknown Rx Acyclovir 400 mg PO Q8H #30 tablet 07/05/20 Unknown Rx Acyclovir [Acyclovir Ointment] 1 applic TP 5XD #1 tube 07/05/20 Unknown Rx Doxycycline Hyclate 100 mg PO Q12H #20 tablet. 07/05/20 Unknown Rx Ibuprofen [Motrin 800 MG tab] 800 mg PO Q8HR PRN #30 tablet 07/05/20 Unknown Rx ED Physical Exam - General Limitations: No Limitations General appearance: alert, in no apparent distress - Head Head exam: Present: atraumatic, normocephalic, normal inspection - Eye Eye exam: Present: normal appearance, PERRL, EOMI Pupils: Present: normal accommodation - ENT ENT exam: Present: normal exam, normal orophraynx, mucous membranes moist, TM's normal bilaterally, normal external ear exam - Neck Neck exam: Present: normal inspection, full ROM - Respiratory Respiratory exam: Present: normal lung sounds bilaterally. Absent: respiratory distress, wheezes, rales, rhonchi, chest wall tenderness, accessory muscle use, prolonged expiratory - Cardiovascular Cardiovascular Exam: Present: regular rate, normal rhythm, normal heart sounds. Absent: systolic murmur, diastolic murmur, rubs, gallop - GI/Abdominal GI/Abdominal exam: Present: soft, normal bowel sounds. 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 Absent: tenderness, CVA tenderness (R), CVA tenderness (L), muscle spasm, paraspinal tenderness, vertebral tenderness - Neurological Exam Neurological exam: Present: alert, oriented X3, CN II-XII intact, normal gait, reflexes normal - Psychiatric Psychiatric exam: Present: normal affect, normal mood - Skin Skin exam: Present: warm, dry, intact, rash, vesicles (Ulcerated vesicular severely tender erythematous maculopapular lesions on penile shaft) ED Course Vital Signs 07/05/20 18:03 Temperature 99.5 F Pulse Rate 80 Respiratory 18 Rate Blood Pressure 155/96 O2 Sat by Pulse 100 Oximetry ED Medical Decision Making - Medical Decision Making This is a 30-year-old -Hungarian male with a history of chronic back pain who presents to the ED with complaint of acute onset persistent severe penile pain due to erythematous maculopapular ulcerated penile lesions for the last 1 week after having an unprotected sexual intercourse with a female about 2 weeks ago. Patient states that the pain is worse whenever he voids urine as the urine drains around the lesions. In the ED, patient is alert and oriented x3 and is not in any distress. Patient the patient's history and physical exam findings, the patient was discharged home on antiviral medications for a suspected genital herpes outbreak. Patient was advised to follow-up with the [facility] department for further STD testing including HIV, other STDs and syphilis. Patient is advised return to the ED immediately if symptoms get worse. Patient was was advised to inform his sexual partner to be treated for the same. - Differential Diagnosis General herpes; syphilis; STD; UTI Critical care attestation.: If time is entered above; I have spent that time in minutes in the direct care of this critically ill patient, excluding procedure time. ED Disposition Clinical Impression: Genital herpes simplex type 2, STD (sexually transmitted disease) Disposition: DC- TO HOME OR SELFCARE Is pt being admited?: No Does the pt Need Aspirin: No Condition: Stable Instructions: Genital Herpes, Viral Illness, Adult, Safe Sex Additional Instructions: Take medication with food, drink plenty of fluids and follow-up with [facility] for further evaluation, STD testing including HIV and syphilis. Return to the ED immediately if symptoms get worse, otherwise ensure that your sexual partner gets tested and treated for the same at the [facility]. Return to the ED immediately if symptoms get worse. Prescriptions: Acyclovir 400 mg PO Q8H #30 tablet Acyclovir [Acyclovir Ointment] 1 applic TP 5XD #1 tube Doxycycline Hyclate 100 mg PO Q12H #20 tablet. Ibuprofen [Motrin 800 MG tab] 800 mg PO Q8HR PRN #30 tablet PRN Reason: Pain, Moderate (4-6) Referrals: [facility] [Outside] - 3-5 Days Time of Disposition: 18:24 Print Language: [place]
== END 2020-07-05 19:02 | disposition home or self-care (01) ==
LOC: ED 17:56
DX: A60.01 Herpesviral infection of penis (principal); A64 Unspecified sexually transmitted disease; F17.200 Nicotine dependence, unspecified, uncomplicated; Z79.899 Other long term (current) drug therapy
CPT/HCPCS: 99282